=== PATIENT | male | born 1955 | race Caucasian/White ===

== ENCOUNTER 2022-08-05 10:49 | Outpatient (CLI) | payer MEDICARE, OTHER | END 2022-08-05 10:50 | disposition home or self-care (01) | LOC: CSHCP 10:49 | PROVIDERS: ATTEND Internal Medicine Hematology & Oncology | DX: C43.60 Malignant melanoma of unspecified upper limb, including shoulder (principal); Z79.899 Other long term (current) drug therapy | CPT/HCPCS: 80053; 82248; 83615; 84100; 84436; 84443; 84550; 85025; 94010; 94726; 94729; 94760 ==